=== PATIENT | female | born 1985 | race Two or more races ===

== ENCOUNTER 2024-11-12 19:05 | Emergency (ER) | payer MEDICAID, SELFPAY ==
[2024-11-12 19:06] VITALS: BMI 28.3
[2024-11-12 19:17] VITALS: BP 131/85; PULSE 68; RESP 18; TEMP 36.7; O2SAT 96
--- NOTE | 2024-11-12 19:25 | XR_ITS ---
Examination: CT brain head without contrast. 2-D sagittal coronal reconstructions Date and time of exam:December 02, 2024 and 194 hours INDICATIONS: Onset headaches today, no injury CTDI: vol (mGy):52.4 DLP: (mGycm):1076 Technique: Multiple CT axial sections of the brain have been obtained, 5 mm slice thickness. Contrast has not been administered. 2-D sagittal, coronal reconstructions have been obtained Low dose protocols were performed. One or more of the following dose reduction techniques were used; automated exposure control, adjustment of the mA and/or KV according to patient size, use of iterative reconstruction technique. Findings: No significant ventricular enlargement. Intra-axial or extra-axial hemorrhage density is not seen. No mass effect or midline shift Basal cisterns are not remarkable. Fourth ventricle is midline. Cranial vault intact. Impression: Negative for acute hemorrhage, mass effect or midline shift Advise clinical correlation and follow-up accordingly
--- NOTE | 2024-11-12 19:26 | PD.EDRME ---
Rapid Medical Screening Exam RME Arrival date/time: 11/12/24 19:05 39-year-old female no significant past medical history presents emergency department complaining of worsening headache that is been ongoing for 10 days. Chief Complaint: Headache Time Seen by Provider: 11/12/24 19:12 Vital signs: Vital Signs Temperature 98.1 F 11/12/24 19:17 Pulse Rate 68 11/12/24 19:17 Respiratory Rate 18 11/12/24 19:17 Blood Pressure 131/85 H 11/12/24 19:17 Pulse Oximetry (%) 96 11/12/24 19:17 Oxygen Delivery Method Room Air 11/12/24 19:17 Vital signs reviewed by provider: Yes
[2024-11-12] MEDS: METOCLOPRAMIDE 5 MG TABLET 10 MG PO (19:34)
[2024-11-12] MEDS: ACETAMINOPHEN 500 MG TABLET 1000 MG PO (19:34)
[2024-11-12 20:12] VITALS: BP 129/76; PULSE 68; RESP 19; TEMP 36.6; O2SAT 98
[2024-11-12] MEDS: KETOROLAC INJ 60 MG/2 ML VIAL 30 MG IM (21:15)
--- NOTE | 2024-11-12 21:17 | PD.EDHA ---
ED Headache RME/HPI General Chief Complaint: Headache Stated Complaint: HEAD PAIN X3DAYS, DENIES INJURY Time Seen by Provider: 11/12/24 19:12 Source: patient Arrival date/time: 11/12/24 19:05 39-year-old female no significant past medical history presents emergency department complaining of worsening headache that is been ongoing for 10 days. Patient denies any dizziness, visual changes, nausea vomiting, ear pain, sore throat, or recent illness. Mode of arrival: ambulatory Limitations: no limitations RME / HPI RME / HPI Narrative: 11/12/24 19:05 39-year-old female no significant past medical history presents emergency department complaining of worsening headache that is been ongoing for 10 days. Related Data Previous Rx's ?Medication ?Instructions ?Recorded acetaminophen 500 mg capsule 500 mg PO Q6H PRN pain #30 caps 11/12/24 ibuprofen 600 mg tablet 600 mg PO Q8H PRN pain #20 tabs 11/12/24 Allergies Allergy/AdvReac Type Severity Reaction Status Date / Time No Known Allergies Allergy Verified 11/12/24 19:09 Review of Systems Review of Systems Systems Reviewed: All systems reviewed, normal except as documented Constitutional Constitutional: Reports system reviewed and no additional complaints, except as documented, Denies body ache(s), Denies chills, Denies fever(s) and Reports headache(s) Eyes Eyes: Reports system reviewed and no additional complaints, except as documented and Denies change in vision ENT Ears, Nose, Mouth, and Throat: Reports system reviewed and no additional complaints, except as documented, Denies disequilibrium, Denies dizziness, Reports headache(s), Denies sore throat and Denies vertigo Cardiovascular Cardiovascular: Reports system reviewed and no additional complaints, except as documented, Denies chest pain and Denies dyspnea Respiratory Respiratory: Reports system reviewed and no additional complaints, except as documented, Denies chest congestion, Denies cough and Denies dyspnea Gastrointestinal Gastrointestinal: Reports system reviewed and no additional complaints, except as documented, Denies abdominal pain, Denies nausea and Denies vomiting Musculoskeletal Musculoskeletal: Reports system reviewed and no additional complaints, except as documented, Denies abnormal gait and Denies arthralgias Integumentary/Breasts Skin/Breast: Reports system reviewed and no additional complaints, except as documented, Denies erythema, Denies rash and Denies wounds Neurologic Neurologic: Reports system reviewed and no additional complaints, except as documented, Denies abnormal gait, Denies disequilibrium, Denies dizziness, Reports headache(s) and Denies vertigo Past Medical History Social History SMOKING STATUS: Never smoker ED Exam General Limitations: Present no limitations General appearance: Present alert and in no apparent distress Head Head exam: Present atraumatic Eye Eye exam: Present normal appearance, PERRL and EOMI ENT ENT exam: Present normal exam, normal oropharynx and mucous membranes moist Neck Neck exam: Present normal inspection, full ROM and trachea midline Chest Chest inspection: Present normal inspection and symmetric chest wall rise Respiratory Respiratory exam: Present normal lung sounds bilaterally Cardiovascular Cardiovascular exam: Present regular rate, normal rhythm and normal heart sounds Abdominal Exam Abdominal exam: Present soft and normal bowel sounds Extremities Exam Extremities exam: Present normal inspection and full ROM Back Exam Back exam: Present normal inspection and full ROM Neurological Exam Neurological exam: Present alert, oriented X3 and CN II-XII intact Psychiatric Psychiatric exam: Present normal affect and normal mood Skin Skin exam: Present warm, dry, intact and normal color Course Quality Measures none Orders Category Date Time Status CT head/brain wo con Stat Exams 11/12/24 19:25 Completed Acetaminophen Tab [Tylenol ES Tab] Med 11/12/24 19:25 Discontinued 1,000 mg PO X1 ONE Ketorolac Inj [Toradol Inj] Med 11/12/24 21:04 Discontinued 30 mg IM X1 ONE Metoclopramide [Reglan] Med 11/12/24 19:26 Discontinued 10 mg PO X1 ONE Vital Signs Vital signs: Vital Signs Temperature 98.1 F 11/12/24 19:17 Pulse Rate 68 11/12/24 19:17 Respiratory Rate 18 11/12/24 19:17 Blood Pressure 131/85 H 11/12/24 19:17 Pulse Oximetry (%) 96 11/12/24 19:17 Oxygen Delivery Method Room Air 11/12/24 19:17 96% room air with normal limits Headache MDM Narrative MDM Narrative:: 39-year-old female no significant past medical history presents emergency department complaining of worsening headache that is been ongoing for 10 days. Patient denies any dizziness, visual changes, nausea vomiting, ear pain, sore throat, or recent illness. CT scan was unremarkable. Patient GCS 15 with steady gait. Patient given pain medication reported significant improvement in pain and symptoms. Patient likely has headache versus migraine versus tension headache. Patient instructed to give plenty of rest and drink plenty of fluids and follow-up with primary care provider and return to emergency department for any worsening symptoms or as needed. Patient data External records reviewed:: None Clinical information provided by:: patient Social determinants that could affect healthcare access:: none Patient has the following chronic illnesses:: None How is presenting disease/condition affected by chronic disease/condition?: no chronic disease Evaluation data The following diagnostics were reviewed and interpreted by me:: radiology exam(s) Lab and/or radiology exams considered but not ordered:: Ordered Interpretation Summary: Interpreted by me Medications / Prescriptions Medications or Prescriptions considered but not ordered:: Ordered Medication administrations:: Medication Administration History Discontinued Medications Acetaminophen (Acetaminophen 500 Mg Tablet) 1,000 mg PO X1 ONE Stop: 11/12/24 19:26 Last Admin: 11/12/24 19:34 Dose: 1,000 mg Documented By: BILL Ketorolac Tromethamine (Ketorolac Inj 60 Mg/2 Ml Vial) 30 mg IM X1 ONE Stop: 11/12/24 21:05 Last Admin: 11/12/24 21:15 Dose: 30 mg Documented By: BHARTI Comments: Metoclopramide HCl (Metoclopramide 5 Mg Tablet) 10 mg PO X1 ONE Stop: 11/12/24 19:27 Last Admin: 11/12/24 19:34 Dose: 10 mg Documented By: BILL Given Consultations Consultation(s) initiated? (list below): No Diagnosis Differential diagnosis headache: migraine, tension headache, subarachnoid hemorrhage, headache, meningitis, sinusitis and postconcussion syndrome Most likely diagnosis given after review of the tests above:: Headache Admission Indicated Admission indicated?: not indicated Admission Request Was there a request for admission?: No Disposition Plan Disposition Plan: Discharge Discharge Attestation Discharge Attestation: The patient and all family members were given an opportunity to ask questions and understood the discharge instructions. Discharge instructions specifically effects, indications for sooner follow up or return to the emergency department, and the expected course of current diagnosis. Patient condition: Stable Discharge Plan Plan Patient Disposition: HOME (Self Care) Disposition Comment: Stable Prescriptions/Referrals Prescriptions/Med Rec: New acetaminophen 500 mg capsule 500 mg PO Q6H PRN (Reason: pain) Qty: 30 0RF ibuprofen 600 mg tablet 600 mg PO Q8H PRN (Reason: pain) Qty: 20 0RF Referrals: No Primary/Family,Physician [Primary Care Provider] - In 1 week Problem List Clinical Impression: Headache Patient/Caregiver Discharge Instructions Discharge Activity: activity as tolerated Education Materials: Self-Care for Headaches Additional Instructions: Drink plenty of fluids and get plenty of rest. Take Tylenol or ibuprofen as needed for pain. Follow-up with primary care provider in 2 to 3 days. Return to emergency department for any worsening symptoms or as needed. Print Language: Bahamian Stand Alone Forms: Julia Award Info., Work/School Release, Patient Portal Info Letter PA/RETAIL CENTER RECEPTIONIST Supervising Physician PA/RETAIL CENTER RECEPTIONIST Supervising Physician: Dr. Quezada
== END 2024-11-12 21:35 | disposition home or self-care (01) ==
PROVIDERS: Emergency Provider Emergency Medicine
DX: R51.9 Headache, unspecified (principal)
CPT/HCPCS: 70450; 96372; 99284; J1885; A9270